=== PATIENT | male | born 1950 | race Caucasian/White ===

== ENCOUNTER 2024-03-10 15:46 | Inpatient (IN) | payer MEDICARE, OTHER ==
[~2024-03-10] VITALS: Ht 182.9 cm; Wt 78.0 kg
[2024-03-10] MEDS ORDERED: SODIUM CHLORIDE 0.9% 2,250 ML IV ONE (16:15)
[2024-03-10] MEDS ORDERED: 0.9% SODIUM CHLORIDE 10 ML SYRINGE IVP PRN (16:15)
[2024-03-10] MEDS: SODIUM CHLORIDE 0.9% 1,900 ML IV ONE (16:40)
[2024-03-10 16:57] LABS: BASOPHILS % (AUTO) 0.2 % (0.0-2.0); EOSINOPHILS % (AUTO) 0 % (1.0-6.0); HEMATOCRIT 27.4 % (41-53); HEMOGLOBIN 9.2 g/dL (13.5-17.5); LYMPHOCYTES # (AUTO) 0.6 K/uL (1.0-4.8); LYMPHOCYTES % (AUTO) 4.5 % (22.0-44.0); MEAN CORPUSCULAR HEMOGLOBIN 31.7 pg (26.0-34.0); MEAN CORPUSCULAR HGB CONC 33.6 G/dL (31.0-37.0); MEAN CORPUSCULAR VOLUME 94 fL (80-100); MONOCYTES % (AUTO) 8.3 % (2.0-9.0); NEUTROPHILS # (AUTO) 10.5 K/uL (1.8-7.7); PLATELET COUNT (AUTO) 176 K/uL (150-450); RED CELL DISTRIBUTION WIDTH 15.2 % (11.5-14.5); WHITE BLOOD COUNT (AUTO) 12.1 K/uL (4.5-11.0)
[2024-03-10] MEDS: CefTRIAXone 1 GM/DEXTROSE 50 ML IV ONE (17:02)
[2024-03-10 17:03] LABS: COVID AG,FIA SOURCE NASAL SWAB
[2024-03-10 17:07] LABS: ANION GAP 9 mmol/L (8-16); CALCIUM, TOTAL 8.4 mg/dL (8.8-10.5); CARBON DIOXIDE 24 mmol/L (22-29); CHLORIDE 98 mmol/L (98-107); CREATININE 1.82 mg/dL (0.60-1.30); GLOMERULAR FILTR. RATE CALC 37 mL/min (>60); GLUCOSE,RANDOM 151 mg/dL (70-110); POTASSIUM 3.8 mmol/L (3.5-5.1); SODIUM SERUM 131 mmol/L (136-145); UREA NITROGEN, BLOOD 46 mg/dL (7-18)
[2024-03-10 17:09] LABS: PROTHROMBIN TIME 11.1 SEC (9.4-11.6)
[2024-03-10 17:10] LABS: B-TYPE NATRIURETIC PEPTIDE 115 pg/mL (0-100)
[2024-03-10 17:13] LABS: ALANINE AMINOTRANSFERASE 53 U/L (12-78); ALKALINE PHOSPHATASE 86 U/L (46-116); ASPARTATE AMINOTRANSFERASE 76 U/L (15-37); BILIRUBIN,TOTAL 0.9 mg/dL (0.1-1.0)
[2024-03-10 17:14] LABS: LACTIC ACID 1.7 mmol/L (0.4-2.0); TROPONIN I-HIGH SENSITIVITY 23 ng/L (<76)
[2024-03-10 17:22] LABS: SARS-COV2 (COVID) ANTIGEN,FIA Negative (Negative)
[2024-03-10 17:23] LABS: INFLUENZA TYPE A NEGATIVE FOR TYPE A (NEGATIVE); INFLUENZA TYPE B NEGATIVE FOR TYPE B (NEGATIVE)
[2024-03-10 17:58] LABS: APPEARANCE,URINE CLEAR (CLEAR); BILIRUBIN,URINE NEGATIVE (NEGATIVE); COLOR,URINE YELLOW (YELLOW); GLUCOSE, URINE (UA) NEGATIVE (NEGATIVE); KETONES,URINE NEGATIVE (NEGATIVE); LEUKOCYTE ESTERASE ,URINE NEGATIVE (NEGATIVE); NITRATE,URINE NEGATIVE (NEGATIVE); OCCULT BLOOD,URINE TRACE (NEGATIVE); PH,URINE 5.5 (5.0-8.0); PROTEIN,URINE 30-70 mg/dL (NEGATIVE); SPECIFIC GRAVITIY, URINE 1.023 (1.003-1.030); UROBILINOGEN,URINE <=1.0 mg/dL (<=1.0)
[2024-03-10 18:19] LABS: RBC,URINE 0-2 /HPF (0-2); WBC,URINE 0-2 /HPF (0-5)
[2024-03-10 18:20] LABS: BACTERIA,URINE Few /HPF (None Seen); SQUAMOUS EPITHELIAL CELL,UR Few /LPF (None Seen)
[2024-03-10] MEDS: AZITHROMYCIN 500 MG/NS 250 ML IV ONE (20:05)
[2024-03-10] MEDS: DOCUSATE SODIUM 100 MG CAPSULE PO SCH (21:00)
[2024-03-10] MEDS: VANCOMYCIN 1.5 GM/WATER(PEG) 300 ML IV ONE (21:04)
[2024-03-10 22:01] VITALS: BP 128/45; PULSE 68; RESP 18; TEMP 98.5; O2SAT 0
[2024-03-10] MEDS ORDERED: SODIUM CHLORIDE 0.9% 500 ML IV ONE (23:29)
[2024-03-10] MEDS: PIPERACILLIN/TAZO 3.375 GM/D5W 50 ML IV SCH (23:30)
[2024-03-10] MEDS: HEPARIN SODIUM,PORCINE 5,000 UNITS/ML VIAL SQ SCH (23:31)
[2024-03-11] VITALS (7 sets, daily range): BP systolic 94–118; BP diastolic 50–70; PULSE 59–91; RESP 16–18; TEMP 97.7–98.6; O2SAT 94–98
[2024-03-11 07:04] LABS: BASOPHILS % (AUTO) 0.2 % (0.0-2.0); EOSINOPHILS % (AUTO) 0.2 % (1.0-6.0); HEMATOCRIT 24.5 % (41-53); HEMOGLOBIN 8.5 g/dL (13.5-17.5); LYMPHOCYTES # (AUTO) 0.8 K/uL (1.0-4.8); LYMPHOCYTES % (AUTO) 7.2 % (22.0-44.0); MEAN CORPUSCULAR HEMOGLOBIN 32.6 pg (26.0-34.0); MEAN CORPUSCULAR HGB CONC 34.6 G/dL (31.0-37.0); MEAN CORPUSCULAR VOLUME 95 fL (80-100); MONOCYTES # (AUTO) 0.8 K/uL (0.1-1.0); MONOCYTES % (AUTO) 7.7 % (2.0-9.0); NEUTROPHILS % (AUTO) 84.7 % (40.0-70.0); PLATELET COUNT (AUTO) 136 K/uL (150-450); RED CELL DISTRIBUTION WIDTH 14.6 % (11.5-14.5); WHITE BLOOD COUNT (AUTO) 10.6 K/uL (4.5-11.0)
[2024-03-11 07:25] LABS: CALCIUM, TOTAL 7.9 mg/dL (8.8-10.5); CREATININE 1.46 mg/dL (0.60-1.30); POTASSIUM 3.7 mmol/L (3.5-5.1)
[2024-03-11] MEDS: VANCOMYCIN 1.5 GM/WATER(PEG) 300 ML IV SCH (08:00)
[2024-03-11] MEDS ORDERED: VANCOMYCIN 1.25 GM/WATER(PEG) 250 ML IV SCH (08:00)
[2024-03-11] MEDS: ATORVASTATIN CALCIUM 20 MG TABLET PO SCH (08:57)
[2024-03-11] MEDS: ASPIRIN 81 MG CHEWABLE TABLET PO SCH (08:57)
[2024-03-11] MEDS: FAMOTIDINE 20 MG TABLET PO SCH (09:08)
[2024-03-11] MEDS: SODIUM CHLORIDE 0.9% 1,000 ML IV ONE (12:01)
[2024-03-11] MEDS: ACETAMINOPHEN 325 MG TABLET PO PRN (20:59)
[2024-03-12] VITALS (7 sets, daily range): BP systolic 147–179; BP diastolic 11–117; PULSE 80–97; RESP 16–20; TEMP 97.5–98.3; O2SAT 94–97
[2024-03-12 08:15] LABS: BASOPHILS % (AUTO) 0.2 % (0.0-2.0); EOSINOPHILS % (AUTO) 0.3 % (1.0-6.0); HEMATOCRIT 26.6 % (41-53); HEMOGLOBIN 9.1 g/dL (13.5-17.5); LYMPHOCYTES # (AUTO) 0.5 K/uL (1.0-4.8); LYMPHOCYTES % (AUTO) 4.2 % (22.0-44.0); MEAN CORPUSCULAR HEMOGLOBIN 32.1 pg (26.0-34.0); MEAN CORPUSCULAR HGB CONC 34.4 G/dL (31.0-37.0); MEAN CORPUSCULAR VOLUME 94 fL (80-100); MONOCYTES # (AUTO) 0.7 K/uL (0.1-1.0); MONOCYTES % (AUTO) 5.9 % (2.0-9.0); NEUTROPHILS # (AUTO) 10.4 K/uL (1.8-7.7); PLATELET COUNT (AUTO) 164 K/uL (150-450); RED BLOOD CELL COUNT(AUTO) 2.85 MIL/uL (4.50-5.90); RED CELL DISTRIBUTION WIDTH 14.9 % (11.5-14.5); WHITE BLOOD COUNT (AUTO) 11.6 K/uL (4.5-11.0)
[2024-03-12 08:16] LABS: NEUTROPHILS % (AUTO) 89.4 % (40.0-70.0)
[2024-03-12 08:29] LABS: CALCIUM, TOTAL 7.9 mg/dL (8.8-10.5); CREATININE 1.49 mg/dL (0.60-1.30); POTASSIUM 3.6 mmol/L (3.5-5.1)
[2024-03-12] MEDS ORDERED: DOCU100C34 PO (11:10)
[2024-03-12] MEDS ORDERED: ATOR40TA71 PO (11:10)
[2024-03-12] MEDS ORDERED: CARV6.2534 PO (11:10)
[2024-03-12] MEDS ORDERED: MAGN-169 PO (11:10)
[2024-03-12] MEDS ORDERED: GABA-1216 PO (11:10)
[2024-03-12] MEDS ORDERED: ACET-2163 PO (11:10)
[2024-03-12] MEDS ORDERED: SENN8.6T90 PO (11:10)
[2024-03-12] MEDS ORDERED: CHOL200074 PO (11:10)
[2024-03-12] MEDS ORDERED: GABA-1181 PO ×2 (11:10)
[2024-03-12] MEDS ORDERED: LISI-660 PO (11:10)
[2024-03-12] MEDS ORDERED: PANT-31 PO (11:10)
[2024-03-12] MEDS ORDERED: MELA5TAB21 PO (11:10)
[2024-03-12] MEDS: PIPERACILLIN SODIUM/TAZOBACTAM 4.5 GM in DEXTROSE 5%-WATER 100 ML IV SCH (11:17)
[2024-03-12] MEDS ORDERED: SODIUM CHLORIDE 0.9% 500 ML IV ONE (22:47)
[2024-03-12] MEDS: HydrALAZINE HCL 20 MG/ML VIAL IVP PRN (22:50)
[2024-03-13] VITALS (8 sets, daily range): BP systolic 125–168; BP diastolic 75–90; PULSE 92–99; RESP 16–19; TEMP 98.2–98.9; O2SAT 96–98
[2024-03-13 07:27] LABS: CALCIUM, TOTAL 8.1 mg/dL (8.8-10.5); CREATININE 1.39 mg/dL (0.60-1.30); POTASSIUM 3.8 mmol/L (3.5-5.1); VANCOMYCIN,RANDOM 9.6 mcg/mL (25.0-50.0)
[2024-03-13] MEDS: CARVEDILOL 6.25 MG TABLET PO SCH (08:36)
[2024-03-13] MEDS ORDERED: ONDANSETRON HCL 4 MG/2 ML VIAL IVP PRN (10:45)
[2024-03-13] MEDS ORDERED: PB/HYOSCY/ATR/SCOP/LIDO/MAALOX 55 ML BOTTLE PO PRN ×2 (10:45→11:30)
[2024-03-13] MEDS: GABAPENTIN 100 MG CAPSULE PO SCH (12:47)
[2024-03-13] MEDS: VANCOMYCIN 750 MG/WATER(PEG) 150 ML IV SCH (21:02)
[2024-03-13] MEDS: GABAPENTIN 300 MG CAPSULE PO SCH (21:03)
[2024-03-14 05:27] VITALS: BP 150/78; PULSE 90; RESP 19; TEMP 98.1; O2SAT 98
[2024-03-14 07:36] LABS: CALCIUM, TOTAL 8.7 mg/dL (8.8-10.5); CREATININE 1.49 mg/dL (0.60-1.30); POTASSIUM 3.6 mmol/L (3.5-5.1)
[2024-03-14 08:28] VITALS: BP 147/54; PULSE 93; RESP 18; TEMP 98; O2SAT 97
[2024-03-14] MEDS: DEXTROSE 5%-LACTATED RINGERS 1,000 ML IV SCH (10:15)
[2024-03-14] MEDS: METOCLOPRAMIDE HCL 5 MG/ML 2 ML VIAL IVP ONE ×2 (10:15→18:43)
[2024-03-14] MEDS: MAGNESIUM HYDROXIDE SUSPENSION 30 ML UDCUP PO PRN (11:03)
[2024-03-14 11:39] VITALS: BP 151/65; PULSE 90; RESP 19; TEMP 98.2; O2SAT 97
[2024-03-14 15:38] VITALS: BP 142/69; PULSE 98; RESP 18; TEMP 98.3; O2SAT 98
[2024-03-14] MEDS ORDERED: ACET-2247 PO (18:37)
== END 2024-03-14 19:00 | DRG 871 ==
LOC: EMS 15:46 → EDH 20:31 → 5S 22:03
PROVIDERS: ADMIT Internal Medicine; ATTEND Internal Medicine
DX: A41.9 Sepsis, unspecified organism (principal); J15.69 Pneumonia due to other Gram-negative bacteria; J69.0 Pneumonitis due to inhalation of food and vomit; E87.1 Hypo-osmolality and hyponatremia; N17.9 Acute kidney failure, unspecified; I13.0 Hypertensive heart and chronic kidney disease with heart failure and stage 1 through stage 4 chronic kidney disease, or unspecified chronic kidney disease; S32.009A Unspecified fracture of unspecified lumbar vertebra, initial encounter for closed fracture; Z20.822 Contact with and (suspected) exposure to COVID-19; I50.9 Heart failure, unspecified; E86.0 Dehydration; I48.91 Unspecified atrial fibrillation; D64.9 Anemia, unspecified; I25.10 Atherosclerotic heart disease of native coronary artery without angina pectoris; E78.00 Pure hypercholesterolemia, unspecified; K21.9 Gastro-esophageal reflux disease without esophagitis; K59.00 Constipation, unspecified; Y95 Nosocomial condition; Z86.73 Personal history of transient ischemic attack (TIA), and cerebral infarction without residual deficits; N18.9 Chronic kidney disease, unspecified
CPT/HCPCS: 70450; 71045; 74018; 80048; 80053; 80202; 81001; 83605; 83880; 84145; 84484; 85025; 85610; 85730; 87040; 87081; 87481; 87804; 93005; 93306; 97162; 97530; 99285; G0378; J0360; J0456; J0696; J1644; J2543; J2765; J7030; J7040; J7060; 36415-L1; 36415-TC